=== PATIENT | female | born 1985 | race Hispanic/Latino ===

== ENCOUNTER 2017-12-11 15:14 | Emergency (ER) | payer OTHER, SELFPAY ==
[2017-12-11] MEDS ORDERED: FLUORESCEIN SODIUM 0.6 MG STRIP ONE (15:52)
[2017-12-11] MEDS ORDERED: NA BORATE/BORIC AC/H2O/NACL 120 ML OPHTH IRRIG SOLN ONE (15:52)
[2017-12-11] MEDS ORDERED: TETRACAINE HCL 0.5% 4 ML OPHTH SOLN ONE (15:52)
[2017-12-11] MEDS ORDERED: TETANUS/DIPHTHERIA TOXOID [ADULT] 0.5 ML VIAL IM ONE (16:19)
== END 2017-12-11 16:33 | disposition home or self-care (01) ==
LOC: EDH 15:14
DX: S05.8X2A Other injuries of left eye and orbit, initial encounter (principal); Z72.0 Tobacco use; X58.XXXA Exposure to other specified factors, initial encounter; Y93.89 Activity, other specified; Y92.89 Other specified places as the place of occurrence of the external cause; Y99.8 Other external cause status
CPT/HCPCS: 90471; 90714